=== PATIENT | female | born 1950 | race Caucasian/White ===

== ENCOUNTER 2024-08-13 11:26 | Observation (INO) | payer MEDICARE ==
--- NOTE | 2024-08-13 12:00 | ERPHSYRPT ---
- History of Present Illness Time Seen by Provider: 08/13/24 11:50 Historian: patient Exam Limitations: no limitations Patient Subjective Stated Complaint: Abdominal pain Triage Nursing Assessment: Patient ambulated back to ED and transferred self to bed. Patient A+O X3. Patient's skin pink, warm and dry. Patient complains of lower pelvic pain intermittent sharp pain. Patient denies pain currently but states when it started the pain is a 10/10. Patient complains of urgency, frequency and hesitency when urinating. Patient complains of pressure like she needs to have a bowel movement. Abdomen soft and round with BS X 4. Patient denies N/V or diarrhea. Physician History: Since yesterday pt has had intermittent sharp lower abdominal pain lasting up to 1 minute per episode and dysuria; denies chest pain, shortness of air, fever. LBM was today without blood. Allergies/Adverse Reactions: No Known Drug Allergies Allergy (Unverified 08/13/24 11:41) Hx Influenza Vaccination/Date Given: No Hx Pneumococcal Vaccination/Date Given: Yes Immunizations Up to Date: Yes Travel Risk - International Travel Have you traveled outside of the country in past 3 weeks: No - Emerging Infectious Disease Are you exhibiting symptoms associated with any current EIDs: No - Review of Systems Constitutional: No Fever, No Chills Respiratory: No Cough, No Dyspnea Cardiac: No Chest Pain Abdominal/Gastrointestinal: Abdominal Pain, No Nausea, No Vomiting, No Diarrhea Genitourinary Symptoms: Dysuria - Past Medical History Pertinent Past Medical History: Yes Neurological History: No Pertinent History ENT History: No Pertinent History Cardiac History: High Cholesterol, Hypertension Respiratory History: No Pertinent History Endocrine Medical History: No Pertinent History Musculoskeletal History: No Pertinent History GI Medical History: No Pertinent History History: No Pertinent History Psycho-Social History: No Pertinent History Female Reproductive Disorders: No Pertinent History Other Medical History: Pre diabetic - Past Surgical History Past Surgical History: No Neuro Surgical History: No Pertinent History Cardiac: No Pertinent History Respiratory: No Pertinent History Gastrointestinal: No Pertinent History Genitourinary: No Pertinent History Musculoskeletal: No Pertinent History Female Surgical History: No Pertinent History - Social History Smoking Status: Never smoker Exposure to second hand smoke: No Drug Use: none - Social Determinants of Health Will the patient participate in the screening: Yes Do you worry about a steady place to live?: No Do you have any problems with any of the following?: No known problems In the past 12 months,have you had to go without utilities?: No Transportation Issues: No Has anyone in your support network made you feel unsafe?: No Have you or anyone in your house had to go without enough: No - Nursing Vital Signs Nursing Vital Signs: Initial Vital Signs Blood Pressure 135/83 08/13/24 11:41 O2 Sat by Pulse Oximetry 99 08/13/24 11:41 Pain Scale Pain Intensity 0 - Physical Exam General Appearance: alert Eye Exam: PERRL/EOMI Ears, Nose, Throat Exam: TMs normal, dry mucous membranes Neck Exam: normal inspection Respiratory Exam: lungs clear Cardiovascular Exam: normal heart sounds Gastrointestinal/Abdomen Exam: other (B.S. mildly hyperactive and normotonic) Back Exam: normal inspection Extremity Exam: No pedal edema Neurologic Exam: alert, cooperative Skin Exam: warm, dry SpO2 Interpretation: normal SpO2: 98 O2 Delivery: Room Air - Course Nursing assessment & vital signs reviewed: Yes - CT Exams Abdomen/Pelvis CT Interpretation: Discussed w/radiologist (Diffuse sigmoid bowel wall thickening and stranding favoring colitis. See rest of report.) Ordered Tests: Active Orders 24 hr Category Date Time Status IV Insertion STAT Care 08/13/24 11:56 Active ABDOMEN AND PELVIS W/0 CONTRAS [CT] Stat Exams 08/13/24 11:57 Completed AMYLASE Stat Lab 08/13/24 12:08 Completed CBC W DIFF Stat Lab 08/13/24 12:08 Completed CMP Stat Lab 08/13/24 12:08 Completed LIPASE Stat Lab 08/13/24 12:08 Completed MAGNESIUM Stat Lab 08/13/24 12:08 Completed UA W/RFX UR CULTURE Stat Lab 08/13/24 12:10 Completed Medication Summary Generic Name Dose Route Start Last Admin Trade Name Freq PRN Reason Stop Dose Admin Sodium Chloride 1,000 mls @ 100 mls/hr 08/13/24 12:00 08/13/24 12:08 Sodium Chloride 0.9% 1000 Ml IV 09/12/24 11:59 100 mls/hr .Q10H SUMAN Administration Sodium Chloride 1,000 mls @ 999 mls/hr 08/13/24 12:46 Sodium Chloride 0.9% 1000 Ml IV 08/13/24 13:46 .Q1H1M STA Piperacillin Sod/Tazobactam 100 mls @ 200 mls/hr 08/13/24 12:59 Sod 3.375 gm/ Sodium Chloride IV 08/13/24 13:28 STAT ONE Discontinued Medications Generic Name Dose Route Start Last Admin Trade Name Rosa Maria PRN Reason Stop Dose Admin Ketorolac Tromethamine 15 mg 08/13/24 11:56 08/13/24 12:08 Ketorolac Tromethamine 30 Mg/Ml Inj IV 08/13/24 11:57 15 mg STAT ONE Administration Ketorolac Tromethamine Confirm 08/13/24 12:06 Ketorolac Tromethamine 30 Mg/Ml Inj Administered 08/13/24 12:07 Dose 30 mg .ROUTE .STK-MED ONE Lab/Rad Data: Laboratory Result Diagrams 08/13/24 12:08 08/13/24 12:08 Laboratory Results 08/13/24 08/13/24 08/13/24 Range/Units 12:10 12:08 12:08 WBC 13.4 H (3.98-10.04) x10^3/uL RBC 3.88 L (3.93-5.22) x10^6/uL Hgb 12.8 (11.2-15.7) g/dL Hct 38.6 (34.1-44.9) % MCV 99.5 H (79.4-94.8) fL MCH 33.0 H (25.6-32.2) pg MCHC 33.2 (32.2-35.5) g/dL RDW 11.9 (11.7-14.4) % Plt Count 199 (182-369) x10^3/uL MPV 10.3 (9.4-12.3) fL Gran % 79.6 H (34.0-71.1) % Immature Gran % (Auto) 0.5 H (0.001-0.429) % Nucleat RBC Rel Count 0.0 (0.00-0.2) % Eos # (Auto) 0.15 (0.04-0.36) x10^3/uL Immature Gran # (Auto) 0.07 H (0.001-0.031) x10^3u/L Absolute Lymphs (auto) 1.09 L (1.18-3.74) x10^3/uL Absolute Monos (auto) 1.38 H (0.24-0.86) x10^3/uL Absolute Nucleated RBC 0.00 (0.00-0.012) x10^3u/L Lymphocytes % 8.1 L (19.3-51.7) % Monocytes % 10.3 (4.7-12.5) % Eosinophils % 1.1 (0.7-5.8) % Basophils % 0.4 (0.1-1.2) % Absolute Granulocytes 10.69 H (1.56-6.13) x10^3/uL Basophils # 0.05 (0.01-0.08) x10^3/uL Sodium 138 (135-145) mmol/L Potassium 3.9 (3.5-5.1) mmol/L Chloride 101 (98-107) mmol/L Carbon Dioxide 30 (22-30) mmol/L Anion Gap 11.2 (5-15) MEQ/L BUN 31 H (7-17) mg/dL Creatinine 0.88 (0.52-1.04) mg/dL Estimated GFR 69.8 ML/MIN Glucose 140 H (74-106) mg/dL Calcium 9.3 (8.4-10.2) mg/dL Magnesium 2.0 (1.6-2.3) mg/dL Total Bilirubin 0.60 (0.2-1.3) mg/dL AST 26 (14-36) U/L ALT 22 (0-35) U/L Alkaline Phosphatase 65 (38-126) U/L Serum Total Protein 7.0 (6.3-8.2) g/dL Albumin 3.7 (3.5-5.0) g/dL Amylase 132 H (30-110) U/L Lipase 159 (23-300) U/L Urine Color Dark Yellow A (Yellow) Urine Appearance Clear (Clear) Urine pH 6.0 (4.6-8.0) Ur Specific [place] >=1.030 A (1.005-1.030) Urine Protein Trace A (Negative) Urine Glucose (UA) Negative (Negative) mg/dL Urine Ketones Negative (Negative) Urine Blood Negative (Negative) Urine Nitrite Negative (Negative) Urine Bilirubin Small A (Negative) Urine Urobilinogen 0.2 (0.2) mg/dL Ur Leukocyte Esterase Negative (Negative) U Hyaline Cast (Auto) NONE SEEN (0-2) /LPF Urine Microscopic RBC 0-2 (0-5) /HPF Urine Microscopic WBC 0-2 (0-5) /HPF Ur Epithelial Cells None Seen (None Seen) /HPF Urine Bacteria None Seen (None Seen) /HPF Urine Culture Reflexed NO (NO) - Progress Progress: unchanged Will see patient in: hospital (observation), other (Spoke with & discussed pt with Dr. Martinez([id number]) - obs) Counseled pt/family regarding: lab results, diagnosis, rad results Medical Desision Making - Diagnostic Testing Diagnostic test were ordered, analyzed, and reviewed by me: Yes Radiological Interpretation: Discussed w/ radiologist - Departure Departure Disposition: Observation Clinical Impression: Colitis, Dehydration Condition: Stable Critical Care Time: No Referrals: JAVIER PIKE MD [Primary Care Provider] - Follow up/PCP as directed
[2024-08-13] MEDS ORDERED: TORAdol 30 mg Injection ONE (12:06)
[2024-08-13] MEDS: Sodium Chloride 0.9% 1000 ML 1,000 ML IV SCH ×2 (12:08→15:20)
[2024-08-13] MEDS: TORAdol 30 mg Injection IV ONE (12:08)
[2024-08-13 12:16] LABS: Absolute Neutrophil Ct (ANC) 10.69 x10^3/uL (1.56-6.13); BASOPHIL % 0.4 % (0.1-1.2); Basophil (Absolute #) 0.05 x10^3/uL (0.01-0.08); Eosinophil % 1.1 % (0.7-5.8); Eosinophil (Absolute #) 0.15 x10^3/uL (0.04-0.36); Hematocrit 38.6 % (34.1-44.9); Hemoglobin 12.8 g/dL (11.2-15.7); IMMATURE GRAN # 0.07 x10^3u/L (0.001-0.031); IMMATURE GRAN % 0.5 % (0.001-0.429); Lymphocyte (Absolute #) 1.09 x10^3/uL (1.18-3.74); Lymphocytes % 8.1 % (19.3-51.7); Mean Cell Volume 99.5 fL (79.4-94.8); Mean Corpuscular Hgb Concent. 33.2 g/dL (32.2-35.5); Mean Platelet Volume 10.3 fL (9.4-12.3); Monocyte (Absolute #) 1.38 x10^3/uL (0.24-0.86); Monocytes % 10.3 % (4.7-12.5); Neutrophil % 79.6 % (34.0-71.1); Platelet Count 199 x10^3/uL (182-369); Red Blood Count 3.88 x10^6/uL (3.93-5.22); Red Cell Distribution Width 11.9 % (11.7-14.4); White Blood Count 13.4 x10^3/uL (3.98-10.04)
[2024-08-13 12:21] LABS: Appearance Clear (Clear); Bacteria None Seen /HPF (None Seen); Bilirubin Small (Negative); Blood Negative (Negative); Epithelial Cells None Seen /HPF (None Seen); Glucose, Urine Negative (Negative); Hyaline Casts NONE SEEN /LPF (0-2); Ketones Negative (Negative); Leukocyte Esterase Negative (Negative); Nitrite Negative (Negative); Protein,Urine Dip Trace (Negative); RBC 0-2 /HPF (0-5); Specific Gravity >=1.030 (1.005-1.030); Urobilinogen 0.2 mg/dL (0.2); WBC 0-2 /HPF (0-5)
[2024-08-13 12:24] LABS: ADD URINE CULTURE? NO (NO)
[2024-08-13 12:33] LABS: ALBUMIN 3.7 g/dL (3.5-5.0); ANION GAP 11.2 MEQ/L (5-15); BILIRUBIN,TOTAL 0.6 mg/dL (0.2-1.3); Calcium 9.3 mg/dL (8.4-10.2); Creatinine 1 0.88 mg/dL (0.52-1.04); EST GLOMERULAR FILTRATION RATE 69.8 ML/MIN; Potassium 3.9 mmol/L (3.5-5.1)
--- NOTE | 2024-08-13 12:44 | XRAY ---
Indication: Pelvic pain. Difficulty with BM and urinating. Multiple contiguous axial images obtained through the abdomen and pelvis without contrast. Comparison: None Lung bases demonstrates scattered peripheral fibrosis/scarring. No infiltrate or effusion. Heart not enlarged. Stomach is mildly fluid distended with minimal intraluminal hyperdensities either ingested medication/bismuth versus barium. Stomach and bowel loops appear nonobstructed. Normal appendix. There is mild diffuse scattered colonic fecal debris throughout and minimal descending diverticulosis. Majority sigmoid demonstrates abnormal bowel wall thickening and moderate stranding favoring colitis. No free fluid/air. Remaining liver, gallbladder, pancreas, spleen, adrenal glands, kidneys, ureters, bladder, and uterus are unremarkable for noncontrast exam. Mild scattered aortoiliac calcifications without AAA. Osseous structures intact with osteopenia, mild multilevel thoracolumbar degenerative spondylosis, and 5-6 mm anterolisthesis L4 on L5. Impression: 1. Diffuse sigmoid bowel wall thickening and stranding favoring colitis. No complications. 2. Mild diffuse fecal stasis. 3. Chronic findings including pulmonary fibrosis/scarring, descending colonic diverticulosis, arteriosclerotic disease, and chronic bony findings.
[2024-08-13] MEDS: Sodium Chloride 0.9% 1000 ML 1,000 ML IV STA (13:01)
[2024-08-13] MEDS ORDERED: PIPERACILLIN/TAZOBACTAM IV ONE (13:05)
[2024-08-13] MEDS ORDERED: Sodium Chloride 100ML MINI-BAG PLUS 100 ML IV ONE (13:05)
[2024-08-13] MEDS: PIPERACILLIN/TAZOBACTAM 3.375 GM in Sodium Chloride 100ML MINI-BAG PLUS 100 ML IV ONE (13:07)
[2024-08-13] MEDS ORDERED: MORPHINE SULFATE 2 MG INJ IV PRN (14:18)
[2024-08-13] MEDS ORDERED: Zofran 4 MG/2 ML VIAL IV PRN (14:18)
--- NOTE | 2024-08-13 14:29 | PCM.HP ---
History of Present Illness - Chief Complaint Chief Complaint: Colitis; Dehydration Date: 08/13/24 History of Present Illness: is a 73 year old female with PMHX of HTN, hyperlipidemia, and COPD. She reports she takes no meds for COPD and has a past hx of smoking but quit. Pt came to the ER today as of yesterday she has had intermittent sharp lower abdominal pain lasting up to 1 minute per episode and dysuria; denies chest pain, shortness of breath, fever. LBM was today without blood. She states she took a laxative last night and this did nothing so she gave herself an enema and had some stool output but feels like she still needs to go. Patient complained of lower pelvic pain at home intermittent sharp pain. Patient denies pain currently but states when it started the pain was 10/10. Patient complains of urgency, frequency and hesitency when urinating. Patient complains of pressure like she needs to have a bowel movement. CT abd/pelvis showed constipation, colitis, pulmonary fibrosis/scarring, and diverticulosis. She was unaware of the Pulm fibrosis. Patient denies N/V or diarrhea. In ER she was given 1LNS, Zosyn, and toradol for pain. She denies CP or SOB. - Review of Systems Constitutional: No Fever, No Chills Eyes: No Symptoms Ears, Nose, & Throat: No Symptoms Respiratory: No Cough, No Short Of Breath Cardiac: No Chest Pain, No Edema, No Syncope Abdominal/Gastrointestinal: Abdominal Pain, Constipation, No Nausea, No Vomiting, No Diarrhea Genitourinary Symptoms: Dysuria, Frequency, Hesitancy Musculoskeletal: No Back Pain, No Neck Pain Skin: No Rash Neurological: No Dizziness, No Focal Weakness, No Sensory Changes Psychological: No Symptoms Endocrine: No Symptoms Hematologic/Lymphatic: No Symptoms Immunological/Allergic: No Symptoms Medications & Allergies Home Medications: Home Medication List Cyanocobalamin (Vitamin B-12) [Vitamin B12] 5,000 mcg PO DAILY 08/13/24 [History Confirmed 08/13/24] Losartan Potassium 12.5 mg PO HS 08/13/24 [History Confirmed 08/13/24] Metformin HCl 500 mg [Glucophage 500 MG] 500 mg PO BIDWM 08/13/24 [History Confirmed 08/13/24] Mv-Mn/Folic AC/Calcium/Vit K1 [Women's 50 Plus Daily Formula] 1 tab PO DAILY 08/13/24 [History Confirmed 08/13/24] Pravastatin Sodium 20 mg PO HS 08/13/24 [History Confirmed 08/13/24] Allergies/Adverse Reactions: Allergies Allergy/AdvReac Type Severity Reaction Status Date / Time No Known Drug Allergies Allergy Unverified 08/13/24 11:41 - Past Medical History Past Medical History: Yes Neurological History: No Pertinent History ENT History: No Pertinent History Cardiac History: High Cholesterol, Hypertension Respiratory History: No Pertinent History, COPD Endocrine Medical History: No Pertinent History Musculoskelatal History: No Pertinent History GI Medical History: No Pertinent History History: No Pertinent History Pyscho-Social History: No Pertinent History Reproductive Disorders: No Pertinent History Comment: Pre diabetic - Past Surgical History Past Surgical History: No Neuro Surgical History: No Pertinent History Cardiac History: No Pertinent History Respiratory Surgery: No Pertinent History GI Surgical History: No Pertinent History Genitourinary Surgical Hx: No Pertinent History Musculskeletal Surgical Hx: No Pertinent History Female Surgical History: No Pertinent History - Social History Smoking Status: Never smoker Exposure to second hand smoke: No Alcohol: None Drug Use: none - Social Determinants of Health Will the patient participate in the screening: Yes Do you worry about a steady place to live?: No Do you have any problems with any of the following?: No known problems In the past 12 months,have you had to go without utilities?: No Have you or anyone in your house had to go without enough: No Transportation Issues: No Has anyone in your support network made you feel unsafe?: No - Physical Exam Vital Signs: Vital Signs - 24 hr Temp Pulse Resp BP BP Pulse Ox 08/13/24 13:06 98 08/13/24 13:00 90 19 143/78 99 08/13/24 12:30 118/64 98 08/13/24 12:00 105 H 119/68 95 08/13/24 11:42 98.1 F 115 H 20 135/83 98 08/13/24 11:41 135/83 99 General Appearance: no apparent distress, alert Neurologic Exam: alert, oriented x 3, cooperative, normal mood/affect, nml cerebellar function, nml station & gait, sensation nml, No motor deficits Eye Exam: PERRL/EOMI, eyes nml inspection Ears, Nose, Throat Exam: normal ENT inspection, TMs normal, pharynx normal, moist mucous membranes Neck Exam: normal inspection, non-tender, supple, full range of motion Respiratory Exam: normal breath sounds, lungs clear, No respiratory distress Cardiovascular Exam: regular rate/rhythm, normal heart sounds, normal peripheral pulses Gastrointestinal/Abdomen Exam: soft, normal bowel sounds, No tenderness, No mass Back Exam: normal inspection, normal range of motion, No CVA tenderness, No vertebral tenderness Extremity Exam: normal inspection, normal range of motion, pelvis stable Skin Exam: normal color, warm, dry, No rash Lymphatic Exam: No adenopathy Results - Labs Lab/Micro Results: Lab Results-Last 24 Hours 08/13/24 08/13/24 08/13/24 Range/Units 12:08 12:08 12:10 WBC 13.4 H (3.98-10.04) x10^3/uL RBC 3.88 L (3.93-5.22) x10^6/uL Hgb 12.8 (11.2-15.7) g/dL Hct 38.6 (34.1-44.9) % MCV 99.5 H (79.4-94.8) fL MCH 33.0 H (25.6-32.2) pg MCHC 33.2 (32.2-35.5) g/dL RDW 11.9 (11.7-14.4) % Plt Count 199 (182-369) x10^3/uL MPV 10.3 (9.4-12.3) fL Gran % 79.6 H (34.0-71.1) % Immature Gran % (Auto) 0.5 H (0.001-0.429) % Nucleat RBC Rel Count 0.0 (0.00-0.2) % Eos # (Auto) 0.15 (0.04-0.36) x10^3/uL Immature Gran # (Auto) 0.07 H (0.001-0.031) x10^3u/L Absolute Lymphs (auto) 1.09 L (1.18-3.74) x10^3/uL Absolute Monos (auto) 1.38 H (0.24-0.86) x10^3/uL Absolute Nucleated RBC 0.00 (0.00-0.012) x10^3u/L Lymphocytes % 8.1 L (19.3-51.7) % Monocytes % 10.3 (4.7-12.5) % Eosinophils % 1.1 (0.7-5.8) % Basophils % 0.4 (0.1-1.2) % Absolute Granulocytes 10.69 H (1.56-6.13) x10^3/uL Basophils # 0.05 (0.01-0.08) x10^3/uL Sodium 138 (135-145) mmol/L Potassium 3.9 (3.5-5.1) mmol/L Chloride 101 (98-107) mmol/L Carbon Dioxide 30 (22-30) mmol/L Anion Gap 11.2 (5-15) MEQ/L BUN 31 H (7-17) mg/dL Creatinine 0.88 (0.52-1.04) mg/dL Estimated GFR 69.8 ML/MIN Glucose 140 H (74-106) mg/dL Calcium 9.3 (8.4-10.2) mg/dL Magnesium 2.0 (1.6-2.3) mg/dL Total Bilirubin 0.60 (0.2-1.3) mg/dL AST 26 (14-36) U/L ALT 22 (0-35) U/L Alkaline Phosphatase 65 (38-126) U/L Serum Total Protein 7.0 (6.3-8.2) g/dL Albumin 3.7 (3.5-5.0) g/dL Amylase 132 H (30-110) U/L Lipase 159 (23-300) U/L Urine Color Dark Yellow A (Yellow) Urine Appearance Clear (Clear) Urine pH 6.0 (4.6-8.0) Ur Specific [place] >=1.030 A (1.005-1.030) Urine Protein Trace A (Negative) Urine Glucose (UA) Negative (Negative) mg/dL Urine Ketones Negative (Negative) Urine Blood Negative (Negative) Urine Nitrite Negative (Negative) Urine Bilirubin Small A (Negative) Urine Urobilinogen 0.2 (0.2) mg/dL Ur Leukocyte Esterase Negative (Negative) U Hyaline Cast (Auto) NONE SEEN (0-2) /LPF Urine Microscopic RBC 0-2 (0-5) /HPF Urine Microscopic WBC 0-2 (0-5) /HPF Ur Epithelial Cells None Seen (None Seen) /HPF Urine Bacteria None Seen (None Seen) /HPF Urine Culture Reflexed NO (NO) - Radiology Impressions Radiology Exams & Impressions: Radiology Procedures Category Date Time Status ABDOMEN AND PELVIS W/0 CONTRAS [CT] Stat Exams 08/13/24 11:57 Completed Assessment/Plan (1) Colitis Current Visit: Yes Status: Acute Assessment & Plan: - denies current abd pain - IVF - Zosyn - protonix IV - As seen on CT abd/pelvis - NPO Code(s): K52.9 - NONINFECTIVE GASTROENTERITIS AND COLITIS, UNSPECIFIED (2) Constipation Current Visit: Yes Status: Acute Assessment & Plan: - As seen on CT abd/ pelvis - Miralax - Pt already gave herself an enema this am with little output. Code(s): K59.00 - CONSTIPATION, UNSPECIFIED (3) Pulmonary fibrosis Current Visit: Yes Status: Acute Assessment & Plan: - As seen on CT - Pt was unaware of these findings - advised pt to receive Flu/COVID/ RSV/ pneumonia vaccines - Pt will need to f/u with PCP for PFT or may need referral to Pulmonology Code(s): J84.10 - PULMONARY FIBROSIS, UNSPECIFIED (4) Dehydration Current Visit: Yes Status: Acute Assessment & Plan: - IVF VTE: SCD's PPI: Protonix Next of KIN: Loraine Fink [phone] D/C plan: tomorrow Code status: Full Code(s): E86.0 - DEHYDRATION Telemedicine Encounter - Telemedicine Encounter Telemedicine Encounter: "The entirety of this encounter was performed via Telemedicine" This visit was performed using real-time audio and video connection between my location and thepatients locationwith the assistance of a surrogateat the patients location. Written or verbal consent was obtained from the patient/guardian to perform this visit [facility] technology. Any patient questions regarding the telemedicine interaction were answered.
[2024-08-13] MEDS: PROTONIX 40 MG IV IV SCH (15:29)
[2024-08-13] MEDS: Miralax Powder 17GM PACKET PO ONE (15:29)
[2024-08-13] MEDS: PIPERACILLIN/TAZOBACTAM 3.375 GM in Sodium Chloride 100ML MINI-BAG PLUS 100 ML IV SCH (18:07)
[2024-08-14 05:59] LABS: Absolute Neutrophil Ct (ANC) 6.64 x10^3/uL (1.56-6.13); BASOPHIL % 0.7 % (0.1-1.2); Basophil (Absolute #) 0.06 x10^3/uL (0.01-0.08); Eosinophil % 3.2 % (0.7-5.8); Eosinophil (Absolute #) 0.29 x10^3/uL (0.04-0.36); Hematocrit 35.2 % (34.1-44.9); Hemoglobin 11.3 g/dL (11.2-15.7); IMMATURE GRAN # 0.04 x10^3u/L (0.001-0.031); IMMATURE GRAN % 0.4 % (0.001-0.429); Lymphocyte (Absolute #) 0.94 x10^3/uL (1.18-3.74); Lymphocytes % 10.5 % (19.3-51.7); Mean Corpuscular Hemoglobin 32.1 pg (25.6-32.2); Mean Corpuscular Hgb Concent. 32.1 g/dL (32.2-35.5); Mean Platelet Volume 10.5 fL (9.4-12.3); Monocyte (Absolute #) 0.96 x10^3/uL (0.24-0.86); Monocytes % 10.8 % (4.7-12.5); Neutrophil % 74.4 % (34.0-71.1); Platelet Count 207 x10^3/uL (182-369); Red Blood Count 3.52 x10^6/uL (3.93-5.22); Red Cell Distribution Width 12.2 % (11.7-14.4); White Blood Count 8.9 x10^3/uL (3.98-10.04)
[2024-08-14 06:31] LABS: ANION GAP 9.4 MEQ/L (5-15); BILIRUBIN,TOTAL 0.8 mg/dL (0.2-1.3); Calcium 8.6 mg/dL (8.4-10.2); EST GLOMERULAR FILTRATION RATE 59.9 ML/MIN; Potassium 4.3 mmol/L (3.5-5.1)
[2024-08-14] MEDS ORDERED: MEDICATION INTERVENTION MC SCH ×2 (07:45)
[2024-08-14] MEDS: Glucophage 500 MG PO SCH (08:10)
[2024-08-14] MEDS: Vitamin C 500 MG PO SCH (09:11)
[2024-08-14] MEDS: Calcium 500MG W/Vit D Tablet PO SCH (09:11)
[2024-08-14] MEDS: THERAGRAN MULTIVITAMIN PO SCH (09:11)
[2024-08-14] MEDS: FEOSOL 325 MG PO SCH (09:11)
[2024-08-14] MEDS: Miralax Powder 17GM PACKET PO SCH (09:12)
[2024-08-14] MEDS ORDERED: FLAXSEED OIL 1000 MG PO SCH (10:00)
[2024-08-14] MEDS ORDERED: NON-FORMULARY ITEM (Cyanocobalamin (Vitamin B-12) [Vitamin B12] 2,500 MCG Tablet) PO SCH (10:00)
--- NOTE | 2024-08-14 10:30 | PCM.DS ---
Discharge Summary Date of Admission: 08/13/24 14:13 Date of Discharge: 08/14/24 Admitting Physician: TENZIN HAYS MD Primary Care Provider: JAVIER PIKE Allergies Allergies No Known Drug Allergies Allergy (Unverified 08/13/24 11:41) Hospital Summary - Hospital Course Hospital Course: 08/13/24 is a 73 year old female with PMHX of HTN, hyperlipidemia, and COPD. She reports she takes no meds for COPD and has a past hx of smoking but quit. Pt came to the ER today as of yesterday she has had intermittent sharp lower abdominal pain lasting up to 1 minute per episode and dysuria; denies chest pain, shortness of breath, fever. LBM was today without blood. She states she took a laxative last night and this did nothing so she gave herself an enema and had some stool output but feels like she still needs to go. Patient complained of lower pelvic pain at home intermittent sharp pain. Patient denies pain currently but states when it started the pain was 10/10. Patient complains of urgency, frequency and hesitency when urinating. Patient complains of pressure like she needs to have a bowel movement. CT abd/pelvis showed constipation, c olitis, pulmonary fibrosis/scarring, and diverticulosis. She was unaware of the Pulm fibrosis. Patient denies N/V or diarrhea. In ER she was given 1LNS, Zosyn, and toradol for pain. She denies CP or SOB. 08/14/24 Pt sitting up in bed this AM. She has been up and walking around the unit. She has had 3BM's today after drinking prune and apple juice. She did well with a clear liquid diet and had no abd. pain, N/V/D. Will transition diet and if she continues to do well will d/c later today. She denies any further concerns at si time. Will d/c with Levaquin OP. - Vitals & Intake/Output Vital Signs: Vital Signs Temperature 97.9 F 08/14/24 07:30 Pulse Rate 80 08/14/24 07:30 Respiratory Rate 15 08/14/24 07:30 Blood Pressure 115/57 08/14/24 07:30 O2 Sat by Pulse Oximetry 92 L 08/14/24 07:30 Intake & Output: Intake & Output 08/11/24 08/12/24 08/13/24 08/14/24 11:59 11:59 11:59 11:59 Intake Total 1745 Balance 1745 Weight 68.3 kg 69.5 kg - Lab Result Diagrams: 08/14/24 05:45 08/14/24 05:45 Lab Results-Last 24 Hrs: Lab Results-Last 24 Hours 08/13/24 08/13/24 08/13/24 Range/Units 12:08 12:08 12:10 WBC 13.4 H (3.98-10.04) x10^3/uL RBC 3.88 L (3.93-5.22) x10^6/uL Hgb 12.8 (11.2-15.7) g/dL Hct 38.6 (34.1-44.9) % MCV 99.5 H (79.4-94.8) fL MCH 33.0 H (25.6-32.2) pg MCHC 33.2 (32.2-35.5) g/dL RDW 11.9 (11.7-14.4) % Plt Count 199 (182-369) x10^3/uL MPV 10.3 (9.4-12.3) fL Gran % 79.6 H (34.0-71.1) % Immature Gran % (Auto) 0.5 H (0.001-0.429) % Nucleat RBC Rel Count 0.0 (0.00-0.2) % Eos # (Auto) 0.15 (0.04-0.36) x10^3/uL Immature Gran # (Auto) 0.07 H (0.001-0.031) x10^3u/L Absolute Lymphs (auto) 1.09 L (1.18-3.74) x10^3/uL Absolute Monos (auto) 1.38 H (0.24-0.86) x10^3/uL Absolute Nucleated RBC 0.00 (0.00-0.012) x10^3u/L Lymphocytes % 8.1 L (19.3-51.7) % Monocytes % 10.3 (4.7-12.5) % Eosinophils % 1.1 (0.7-5.8) % Basophils % 0.4 (0.1-1.2) % Absolute Granulocytes 10.69 H (1.56-6.13) x10^3/uL Basophils # 0.05 (0.01-0.08) x10^3/uL Sodium 138 (135-145) mmol/L Potassium 3.9 (3.5-5.1) mmol/L Chloride 101 (98-107) mmol/L Carbon Dioxide 30 (22-30) mmol/L Anion Gap 11.2 (5-15) MEQ/L BUN 31 H (7-17) mg/dL Creatinine 0.88 (0.52-1.04) mg/dL Estimated GFR 69.8 ML/MIN Glucose 140 H (74-106) mg/dL Calcium 9.3 (8.4-10.2) mg/dL Magnesium 2.0 (1.6-2.3) mg/dL Total Bilirubin 0.60 (0.2-1.3) mg/dL AST 26 (14-36) U/L ALT 22 (0-35) U/L Alkaline Phosphatase 65 (38-126) U/L Serum Total Protein 7.0 (6.3-8.2) g/dL Albumin 3.7 (3.5-5.0) g/dL Amylase 132 H (30-110) U/L Lipase 159 (23-300) U/L Urine Color Dark Yellow A (Yellow) Urine Appearance Clear (Clear) Urine pH 6.0 (4.6-8.0) Ur Specific [place] >=1.030 A (1.005-1.030) Urine Protein Trace A (Negative) Urine Glucose (UA) Negative (Negative) mg/dL Urine Ketones Negative (Negative) Urine Blood Negative (Negative) Urine Nitrite Negative (Negative) Urine Bilirubin Small A (Negative) Urine Urobilinogen 0.2 (0.2) mg/dL Ur Leukocyte Esterase Negative (Negative) U Hyaline Cast (Auto) NONE SEEN (0-2) /LPF Urine Microscopic RBC 0-2 (0-5) /HPF Urine Microscopic WBC 0-2 (0-5) /HPF Ur Epithelial Cells None Seen (None Seen) /HPF Urine Bacteria None Seen (None Seen) /HPF Urine Culture Reflexed NO (NO) 08/14/24 08/14/24 Range/Units 05:45 05:45 WBC 8.9 (3.98-10.04) x10^3/uL RBC 3.52 L (3.93-5.22) x10^6/uL Hgb 11.3 (11.2-15.7) g/dL Hct 35.2 (34.1-44.9) % MCV 100.0 H (79.4-94.8) fL MCH 32.1 (25.6-32.2) pg MCHC 32.1 L (32.2-35.5) g/dL RDW 12.2 (11.7-14.4) % Plt Count 207 (182-369) x10^3/uL MPV 10.5 (9.4-12.3) fL Gran % 74.4 H (34.0-71.1) % Immature Gran % (Auto) 0.4 (0.001-0.429) % Nucleat RBC Rel Count 0.0 (0.00-0.2) % Eos # (Auto) 0.29 (0.04-0.36) x10^3/uL Immature Gran # (Auto) 0.04 H (0.001-0.031) x10^3u/L Absolute Lymphs (auto) 0.94 L (1.18-3.74) x10^3/uL Absolute Monos (auto) 0.96 H (0.24-0.86) x10^3/uL Absolute Nucleated RBC 0.00 (0.00-0.012) x10^3u/L Lymphocytes % 10.5 L (19.3-51.7) % Monocytes % 10.8 (4.7-12.5) % Eosinophils % 3.2 (0.7-5.8) % Basophils % 0.7 (0.1-1.2) % Absolute Granulocytes 6.64 H (1.56-6.13) x10^3/uL Basophils # 0.06 (0.01-0.08) x10^3/uL Sodium 140 (135-145) mmol/L Potassium 4.3 (3.5-5.1) mmol/L Chloride 107 (98-107) mmol/L Carbon Dioxide 28 (22-30) mmol/L Anion Gap 9.4 (5-15) MEQ/L BUN 25 H (7-17) mg/dL Creatinine 1.00 (0.52-1.04) mg/dL Estimated GFR 59.9 ML/MIN Glucose 95 (74-106) mg/dL Calcium 8.6 (8.4-10.2) mg/dL Magnesium (1.6-2.3) mg/dL Total Bilirubin 0.80 (0.2-1.3) mg/dL AST 20 (14-36) U/L ALT 17 (0-35) U/L Alkaline Phosphatase 63 (38-126) U/L Serum Total Protein 6.0 L (6.3-8.2) g/dL Albumin 3.0 L (3.5-5.0) g/dL Amylase 124 H (30-110) U/L Lipase 127 (23-300) U/L Urine Color (Yellow) Urine Appearance (Clear) Urine pH (4.6-8.0) Ur Specific [place] (1.005-1.030) Urine Protein (Negative) Urine Glucose (UA) (Negative) mg/dL Urine Ketones (Negative) Urine Blood (Negative) Urine Nitrite (Negative) Urine Bilirubin (Negative) Urine Urobilinogen (0.2) mg/dL Ur Leukocyte Esterase (Negative) U Hyaline Cast (Auto) (0-2) /LPF Urine Microscopic RBC (0-5) /HPF Urine Microscopic WBC (0-5) /HPF Ur Epithelial Cells (None Seen) /HPF Urine Bacteria (None Seen) /HPF Urine Culture Reflexed (NO) - Radiology Exams Ordered Rad Exams-Entire Visit: Radiology Procedures Category Date Time Status ABDOMEN AND PELVIS W/0 CONTRAS [CT] Stat Exams 08/13/24 11:57 Completed - Procedures and Test Procedures and Tests throughout Hospitalization: Therapy Orders & Screens 08/13/24 16:23 ST Screen per Nursing Assess ONCE Comment: Protocol Order Physician Instructions: Greater than [address] Admission Screening Reason For Exam: Triggered on Admission Diagnosis: Colitis; Dehydration CVA/Dyshpagia/Aphasia: No Cognitive Deficits: No Dehydration/Nutrition Deficit: Yes Reflux: No Oral-Motor Difficulties: No Pneumonia: No Residential Resident: No Total Points: 5 Discharge Exam General Appearance: no apparent distress, alert Neurologic Exam: alert, oriented x 3, cooperative, normal mood/affect, nml cerebellar function, sensation nml, No motor deficits Eye Exam: PERRL, EOMI, eyes nml inspection Ears, Nose, Throat Exam: normal ENT inspection, pharynx normal, moist mucous membranes Neck Exam: normal inspection, non-tender, supple, full range of motion Respiratory Exam: normal breath sounds, lungs clear, No respiratory distress Cardiovascular Exam: regular rate/rhythm, normal heart sounds Gastrointestinal/Abdomen Exam: soft, No tenderness, No mass Pelvic Exam: deferred Rectal Exam: deferred Back Exam: normal inspection, normal range of motion, No CVA tenderness, No vertebral tenderness Extremity Exam: normal inspection, normal range of motion Skin Exam: normal color, warm, dry Final Diagnosis/Problem List - Final Discharge Diagnosis/Problem (1) Colitis Current Visit: Yes Status: Acute Code(s): K52.9 - NONINFECTIVE GASTROENTERITIS AND COLITIS, UNSPECIFIED (2) Constipation Current Visit: Yes Status: Acute Code(s): K59.00 - CONSTIPATION, UNSPECIFIED (3) Pulmonary fibrosis Current Visit: Yes Status: Acute Code(s): J84.10 - PULMONARY FIBROSIS, UNSPECIFIED (4) Dehydration Current Visit: Yes Status: Acute Assessment & Plan: (1) Colitis Current Visit: Yes Status: Acute Assessment & Plan: - denies current abd pain - IVF - Zosyn - protonix IV - As seen on CT abd/pelvis - NPO 08/14 - Denies ABD pain, N/V/D - admits to some abd. pressure - BMx3 and feeling better - Clear liquid diet and transition as tolerated Code(s): K52.9 - NONINFECTIVE GASTROENTERITIS AND COLITIS, UNSPECIFIED (2) Constipation Current Visit: Yes Status: Acute Assessment & Plan: - As seen on CT abd/ pelvis - Miralax - Pt already gave herself an enema this am with little output. 08/14 - BMx3 and feeling better Code(s): K59.00 - CONSTIPATION, UNSPECIFIED (3) Pulmonary fibrosis Current Visit: Yes Status: Acute Assessment & Plan: - As seen on CT - Pt was unaware of these findings - advised pt to receive Flu/COVID/ RSV/ pneumonia vaccines - Pt will need to f/u with PCP for PFT or may need referral to Pulmonology Code(s): J84.10 - PULMONARY FIBROSIS, UNSPECIFIED (4) Dehydration Current Visit: Yes Status: Acute Assessment & Plan: - IVF Code(s): E86.0 - DEHYDRATION - Discharge Discharge Date: 08/14/24 Disposition: Home, Self-Care Condition: Stable Prescriptions: Continue Mv-Mn/Folic AC/Calcium/Vit K1 [Women's 50 Plus Daily Formula] 1 tab PO DAILY Pravastatin Sodium 20 mg PO HS Metformin HCl 500 mg [Glucophage 500 MG] 500 mg PO BIDWM Losartan Potassium 12.5 mg PO HS Cyanocobalamin (Vitamin B-12) [Vitamin B12] 5,000 mcg PO DAILY Ascorbic Acid 500 mg [Vitamin C 500 MG] 1 tab PO DAILY flaxseed oiL [Flaxseed Oil] 1 tab PO BID Calcium Carbonate/Vitamin D3 [Calcium 600 mg-Vit D3 10Mcg Tb] 1 tab PO BID Ferrous Sulfate 325 mg [Feosol 325 mg] 1 tab PO DAILY Instructions: Colitis - Discharge instructions Follow up with: JAVIER IPKE MD [Primary Care Provider] - Call for Appointment Forms: Discharge Instructions
[2024-08-14 12:06] VITALS: BP 113/57; PULSE 79; RESP 16; TEMP 96.9; O2SAT 99
[2024-08-14] MEDS ORDERED: ZOCOR 20MG PO SCH (22:00)
[2024-08-14] MEDS ORDERED: Cozaar 50 MG PO SCH (22:00)
== END 2024-08-14 13:10 | disposition home or self-care (01) ==
LOC: ED 11:26 → MED SURG 14:13
PROVIDERS: ADMIT Internal Medicine; ATTEND Internal Medicine
DX: K52.9 Noninfective gastroenteritis and colitis, unspecified (principal); K59.00 Constipation, unspecified; J84.10 Pulmonary fibrosis, unspecified; E86.0 Dehydration; Z79.899 Other long term (current) drug therapy; I10 Essential (primary) hypertension
CPT/HCPCS: 36000; 36415; 74176; 80053; 81001; 82150; 83690; 83735; 85025; 96374; 96375; 99285; G0378; J1885; Q3014; A9270-GY